=== PATIENT | female | born 1985 | race Caucasian/White ===

== ENCOUNTER 2025-01-11 09:48 | Outpatient (CLI) | payer MEDICAID, SELFPAY ==
--- NOTE | 2025-01-11 10:04 | MM_ITS ---
WS: [id number] BILATERAL 3D TOMOSYNTHESIS DIGITAL SCREENING MAMMOGRAPHY WITH CAD CLINICAL INFORMATION: SCREENING HISTORY: Screening mammogram. No current complaints. COMPARISON: Baseline TECHNIQUE: Bilateral CC and MLO views. FINDINGS: Scattered fibroglandular densities bilaterally. Partially obscured ovoid nodule outer LEFT breast. Recommend further evaluation with LEFT breast diagnostic mammography and ultrasound. Nodular density measures 1.6 cm. Unremarkable RIGHT breast. MM/MM [facility] tomosynthesis [id number] IMPRESSION: DENSITY: There are scattered areas of fibroglandular density. BI-RADS: 0 - Incomplete: Need additional imaging evaluation. FOLLOW UP: Need Additional Imaging Recommend LEFT breast diagnostic mammography and ultrasound.
== END 2025-01-11 09:49 | disposition home or self-care (01) ==
LOC: RAD 09:52
PROVIDERS: PCP Family Medicine; Visit Provider Family Medicine
DX: Z12.31 Encounter for screening mammogram for malignant neoplasm of breast (principal); R92.323 Mammographic fibroglandular density, bilateral breasts; N63.20 Unspecified lump in the left breast, unspecified quadrant
CPT/HCPCS: 77063; 77067

== ENCOUNTER 2025-01-26 10:56 | Outpatient (CLI) | payer MEDICAID, SELFPAY ==
--- NOTE | 2025-01-26 11:06 | MM_ITS ---
WS: [id number] LEFT 3D TOMOSYNTHESIS DIGITAL MAMMOGRAPHY WITH CAD CLINICAL INFORMATION: ABNORMAL LEFT MAMMOGRAM HISTORY: Additional views TECHNIQUE: 3 views of the left breast were obtained. FINDINGS: Scattered fibroglandular densities of the left breast. Again seen is the partially obscured ovoid nodule lateral LEFT breast. Ultrasound described below. ULTRASOUND BREAST LEFT TECHNIQUE: Ultrasound left breast focused area of concern. CLINICAL INFORMATION: ABNORMAL LEFT MAMMOGRAM FINDINGS: Ultrasound lateral LEFT breast. At the 3 o'clock position 4 cm from the nipple is a lobulated hypoechoic nodule measuring 1.2 x 0.8 x 1.8 cm. This could represent a fibroadenoma in a patient of this age but indeterminant and recommend further evaluation with ultrasound-guided biopsy. MM/MM diag LT tomosynthesis [id number] IMPRESSION: DENSITY: There are scattered areas of fibroglandular density. BI-RADS: 4 - Suspicious Finding - Biopsy Should Be Considered. FOLLOW UP: US Guided Biopsy Recommended Recommend ultrasound-guided biopsy of the solid LEFT breast lesion.
--- NOTE | 2025-01-26 11:53 | US_ITS ---
WS: [id number] LEFT 3D TOMOSYNTHESIS DIGITAL MAMMOGRAPHY WITH CAD CLINICAL INFORMATION: ABNORMAL LEFT MAMMOGRAM HISTORY: Additional views TECHNIQUE: 3 views of the left breast were obtained. FINDINGS: Scattered fibroglandular densities of the left breast. Again seen is the partially obscured ovoid nodule lateral LEFT breast. Ultrasound described below. ULTRASOUND BREAST LEFT TECHNIQUE: Ultrasound left breast focused area of concern. CLINICAL INFORMATION: ABNORMAL LEFT MAMMOGRAM FINDINGS: Ultrasound lateral LEFT breast. At the 3 o'clock position 4 cm from the nipple is a lobulated hypoechoic nodule measuring 1.2 x 0.8 x 1.8 cm. This could represent a fibroadenoma in a patient of this age but indeterminant and recommend further evaluation with ultrasound-guided biopsy. US/US breast LT limited* [id number] IMPRESSION: DENSITY: There are scattered areas of fibroglandular density. BI-RADS: 4 - Suspicious Finding - Biopsy Should Be Considered. FOLLOW UP: US Guided Biopsy Recommended Recommend ultrasound-guided biopsy of the solid LEFT breast lesion.
== END 2025-01-26 10:57 | disposition home or self-care (01) ==
PROVIDERS: PCP Family Medicine; Visit Provider Family Medicine
DX: R92.8 Other abnormal and inconclusive findings on diagnostic imaging of breast (principal); R92.322 Mammographic fibroglandular density, left breast; N63.25 Unspecified lump in the left breast, overlapping quadrants
CPT/HCPCS: 76642; 77061; G0279

== ENCOUNTER 2025-02-08 14:16 | Outpatient (CLI) | payer MEDICAID, SELFPAY ==
--- NOTE | 2025-02-08 14:38 | US_ITS ---
WS: [id number] ULTRASOUND-GUIDED LEFT BREAST BIOPSY CLINICAL INFORMATION: abnormal mammo FINDINGS: The procedure including risks, benefits, and complications were discussed with the patient who agreed to proceed. Using sterile technique patient was prepped and draped in the usual sterile fashion. After 1% lidocaine utilizing real-time ultrasound guidance 5 14-gauge cores were obtained of the LEFT breast lesion at the 3:00 o'clock position 4 cm from the nipple. Subsequently a titanium clip was placed in the biopsy cavity. No immediate complications. US/[place] [id number] IMPRESSION: 1. Uncomplicated ultrasound-guided LEFT breast biopsy. 2. The pathology demonstrates benign breast parenchyma with fibroadenomatoid c hanges. No atypia or malignancy. Findings are benign. 3. Recommend return to annual screening mammography. DENSITY: There are scattered areas of fibroglandular density. BI-RADS: 2 - Benign. FOLLOW UP: 1 Year Follow-up
== END 2025-02-08 14:17 | disposition home or self-care (01) ==
PROVIDERS: PCP Family Medicine; Visit Provider Family Medicine
DX: R92.8 Other abnormal and inconclusive findings on diagnostic imaging of breast (principal); D24.2 Benign neoplasm of left breast; N60.32 Fibrosclerosis of left breast; R92.0 Mammographic microcalcification found on diagnostic imaging of breast
CPT/HCPCS: 19083; 88305

== ENCOUNTER 2025-04-10 08:48 | Outpatient (CLI) | payer MEDICAID, SELFPAY ==
--- NOTE | 2025-04-10 09:00 | XRR_ITS ---
PROCEDURE INFORMATION: Exam: XR Right Knee Exam date and time: 04/10/2025 9:09 AM Age: 39 years old Clinical indication: Right; Pain RT knee after injury in 2022; Additional info: RT knee pain TECHNIQUE: Imaging protocol: Radiologic exam of the right knee. Views: 3 views. COMPARISON: No relevant prior studies available. FINDINGS: Bones/joints: No acute fracture. Normal joints alignment. No large joint effusion. Soft tissues: Normal. XR/XR knee RT 3V* [id number] IMPRESSION: No acute osseous abnormality.
== END 2025-04-10 08:49 | disposition home or self-care (01) ==
PROVIDERS: PCP Family Medicine; Visit Provider Family Medicine
DX: M25.561 Pain in right knee (principal)
CPT/HCPCS: 73562

== ENCOUNTER 2025-04-27 11:39 | Outpatient (CLI) | payer MEDICAID, SELFPAY ==
--- NOTE | 2025-04-27 11:45 | MR_ITS ---
WS: [id number] MRI RIGHT KNEE HISTORY: PAIN IN R KNEE COMPARISON: Radiograph 04/10/2025 Anterior cruciate ligament: Intact. There is a small amount of edema within the distal ACL along the intercondylar notch. Posterior cruciate ligament: Intact. Medial collateral ligament: Intact. Posterior lateral corner structures: Intact. Medial menisci: Intact. Normal signal, size and shape. Lateral meniscus: Intact. Normal signal, size and shape. Extensor mechanism: Distal quadriceps tendon and patellar tendons are intact. Fluid and soft tissue: No joint effusion. No Mcallister's cyst. Osseous and articular structures: Patellofemoral compartment: Normal. Medial compartment: Very mild narrowing the medial compartment. 5 mm defect in the cartilage along the weightbearing surface of the femoral condyle. No marrow edema. Lateral compartment: Normal. MR/MR knee RT wo con* [id number] IMPRESSION: 1. Mild distal ACL sprain. There is a small amount of edema in the ACL and flu id in the intercondylar notch associated with the distal ACL. No tear. 2. 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 3. No fractures or marrow edema.
== END 2025-04-27 11:40 | disposition home or self-care (01) ==
LOC: RAD 11:42
PROVIDERS: PCP Family Medicine; Visit Provider Family Medicine
DX: S83.511A Sprain of anterior cruciate ligament of right knee, initial encounter (principal); Y99.9 Unspecified external cause status; M94.261 Chondromalacia, right knee
CPT/HCPCS: 73721